=== PATIENT | female | born 1980 | race Caucasian/White ===

== ENCOUNTER 2019-11-04 06:05 | Inpatient (IN) | payer OTHER ==
[2019-11-04] MEDS ORDERED: Sodium Chloride 0.9% 10 ML ONE (06:34)
[2019-11-04] MEDS ORDERED: Thrombin 5000 UNITS/5 ML VIAL ONE (06:34)
[2019-11-04] MEDS ORDERED: Levofloxacin 500 mg/D5W 100 ml Premix Bag ONE (06:45)
[2019-11-04] MEDS ORDERED: Bacitracin Zinc Ointment 30 gm TUBE ONE (06:50)
[2019-11-04 06:59] LABS: #Eosinphils 0.1 thou/uL (0.0-0.7); #Lymphocytes 2.3 thou/uL (1.20-3.40); #Monocytes 0.6 thou/uL (0.11-0.59); #Neutrophils 4.8 thou/uL (1.40-6.50); %Basophils 0.6 % (0.0-1.0); %Eosinophils 1.3 % (0.0-10.0); %Lymphocytes 29.2 % (21.0-51.0); %Monocytes 7.5 % (0.0-10.0); %Neutrophils 61.5 % (42.0-75.0); Hemoglobin 15.4 g/dL (12.0-16.0); Mean Corpuscular HGB CONC 34.7 g/dL (32.0-36.0); Mean Corpuscular Hemoglobin 31.4 pg (27.0-31.0); Mean Corpuscular Volume 90.5 fL (78.0-98.0); Mean Platelet Volume 8.2 fL (7.4-10.4); Platelet Count 273 thou/uL (130-400); RBC Distribution Width 11.4 % (11.5-14.5); Red Blood Cell (RBC) Count 4.89 mill/uL (4.20-5.40); White Blood Cell (WBC) Count 7.7 thou/uL (4.8-10.8)
[2019-11-04 07:03] LABS: BHCG - Serum Negative (NEGATIVE); Pregs Control Background? CLEAR/WHITE (CLR/WHITE); Pregs Control Bar Appear? YES (CONTROL BAR)
[2019-11-04] MEDS ORDERED: Midazolam HCl 2 mg/2 ml Vial ONE ×2 (07:13→07:28)
[2019-11-04 07:14] LABS: PTT 28.1 SEC (22.9-36.1); Prothrombin Time 13.2 SEC (12.0-14.7)
[2019-11-04 07:17] LABS: Anion Gap 11 mmol/L (10-20); BUN (Urea Nitrogen) 8 mg/dL (7.0-18.7); Calc. Creatinine Clearance 134 mL/min (70-130); Calcium 9.2 mg/dL (7.8-10.44); Carbon Dioxide 26 mmol/L (22-29); Chloride 102 mmol/L (98-107); Estimated GFR-MDRD 71; Glucose 105 mg/dL (70-105); Potassium 3.4 mmol/L (3.5-5.1); Sodium 136 mmol/L (136-145)
[2019-11-04] MEDS ORDERED: Fentanyl 100 MCG/2 ML VIAL ONE ×5 (07:27→14:13)
[2019-11-04] MEDS ORDERED: Clindamycin/D5W 900 mg/50 ml Premix Bag ONE (08:06)
[2019-11-04] MEDS ORDERED: ePHEDrine/0.9% NaCl/PF SYRINGE 50 mg/10 ml ONE (10:44)
[2019-11-04] MEDS ORDERED: PROPOFOL 200 MG/20 ML VIAL ONE (10:44)
[2019-11-04] MEDS ORDERED: PHENYLEPHRINE-NS 100 MCG/ML 10 ML SYRINGE ONE (10:44)
[2019-11-04] MEDS ORDERED: Calcium Chloride 1 GM/10 ML Abboject SYRINGE ONE (10:44)
[2019-11-04] MEDS ORDERED: Dexamethasone 20 MG/5 ML VIAL ONE (10:44)
[2019-11-04] MEDS ORDERED: Ondansetron PF 4 MG/2 ML Vial ONE (10:44)
[2019-11-04] MEDS ORDERED: Rocuronium Bromide 10 MG/ML (10ML VIAL) ONE (10:44)
[2019-11-04] MEDS ORDERED: Glycopyrrolate 0.2 MG/ML 5 ML SYRINGE ONE (10:44)
[2019-11-04] MEDS ORDERED: Rocuronium Bromide 50 MG/5 ML VIAL ONE (10:54)
[2019-11-04] MEDS ORDERED: Acetaminophen 325 MG TAB PO PRN (12:04)
[2019-11-04] MEDS ORDERED: Cepastat Lozenges 1 LOZ PO PRN (12:04)
[2019-11-04] MEDS ORDERED: Labetalol HCl 100 MG/20 ML VIAL SLOW IVP PRN (12:04)
[2019-11-04] MEDS ORDERED: Mag-Al 1200 mg/1200 mg/30 ML UDCUP PO PRN (12:04)
[2019-11-04] MEDS ORDERED: Fleet Enema 133 ML BOT PR PRN (12:04)
[2019-11-04] MEDS ORDERED: hydrALAZINE 20 MG/ML VIAL SLOW IVP PRN (12:04)
[2019-11-04] MEDS ORDERED: Promethazine HCl 25 MG/ML VIAL ONE (13:37)
[2019-11-04] MEDS: HYDROcodone/Acetaminophen 7.5/325 mg Tablet PO PRN ×2 (15:41→20:12)
[2019-11-04] MEDS: Clindamycin/D5W 900 MG in Premix Bag 1 BAG IVPB SCH ×2 (15:43→20:06)
[2019-11-04] MEDS: Ondansetron PF 4 MG/2 ML Vial IVP PRN (15:43)
[2019-11-04] MEDS: Sodium Chloride 0.9% 1,000 ML IV SCH (15:51)
[2019-11-04 16:07] VITALS: BMI 42.0
[2019-11-04] MEDS: Morphine 2 MG/ML SYRINGE SLOW IVP PRN (18:06)
[2019-11-04] MEDS: Promethazine HCl 25 MG/ML VIAL IM/IV PRN (18:10)
[2019-11-05] MEDS: Ondansetron PF 4 MG/2 ML Vial IVP PRN ×3 (00:01→18:05)
[2019-11-05] MEDS: Morphine 2 MG/ML SYRINGE SLOW IVP PRN (00:01)
[2019-11-05] MEDS: Sodium Chloride 0.9% 1,000 ML IV SCH ×2 (03:14→15:26)
[2019-11-05] MEDS: Clindamycin/D5W 900 MG in Premix Bag 1 BAG IVPB SCH ×4 (03:14→20:00)
[2019-11-05 03:44] LABS: #Lymphocytes 1.2 thou/uL (1.20-3.40); #Neutrophils 16.7 thou/uL (1.40-6.50); %Eosinophils 0.1 % (0.0-10.0); %Lymphocytes 6.1 % (21.0-51.0); %Monocytes 5.1 % (0.0-10.0); %Neutrophils 88.7 % (42.0-75.0); Hemoglobin 13.7 g/dL (12.0-16.0); Mean Corpuscular HGB CONC 34.3 g/dL (32.0-36.0); Mean Corpuscular Hemoglobin 31.5 pg (27.0-31.0); Mean Corpuscular Volume 91.9 fL (78.0-98.0); Mean Platelet Volume 8.5 fL (7.4-10.4); Platelet Count 246 thou/uL (130-400); RBC Distribution Width 11.4 % (11.5-14.5); Red Blood Cell (RBC) Count 4.35 mill/uL (4.20-5.40); White Blood Cell (WBC) Count 18.8 thou/uL (4.8-10.8)
[2019-11-05 04:05] LABS: Anion Gap 13 mmol/L (10-20); BUN (Urea Nitrogen) 7 mg/dL (7.0-18.7); Calc. Creatinine Clearance 151 mL/min (70-130); Calcium 8.7 mg/dL (7.8-10.44); Carbon Dioxide 22 mmol/L (22-29); Chloride 102 mmol/L (98-107); Estimated GFR-MDRD 83; Glucose 131 mg/dL (70-105); Potassium 4.2 mmol/L (3.5-5.1); Sodium 133 mmol/L (136-145)
[2019-11-05] MEDS: Promethazine HCl 25 MG/ML VIAL IM/IV PRN ×2 (04:07→20:32)
[2019-11-05] MEDS: Pantoprazole 40 MG VIAL IVP SCH (07:46)
[2019-11-05] MEDS: HYDROcodone/Acetaminophen 7.5/325 mg Tablet PO PRN ×3 (08:04→23:11)
--- NOTE | 2019-11-05 08:16 | OP ---
DATE OF PROCEDURE: 11/04/2019 MINING MACHINERY ASSEMBLER: Jaylin Dowell PA-C. PREPROCEDURE DIAGNOSIS: Chiari I malformation, symptomatic. POSTPROCEDURE DIAGNOSIS: Chiari I malformation, symptomatic. PROCEDURES PERFORMED: 1. Chiari decompression with suboccipital craniectomy and C1 laminectomy. 2. Duraplasty with right autologous fat, tensor fascia wendy graft. 3. Use of operative microscope for microdissection. DESCRIPTION OF PROCEDURE: After informed consent was obtained from the patient, the patient was brought to the OR. Proper patient, pause, and identification were carried out. She was placed under excellent general endotracheal anesthesia and positioned prone on the OR table. Following the placement of Xiong Julian, her head was secured in pins and hair was clipped in the region of the suboccipital area. We then identified the midline, marked below the inion down to the C1-C2 segment. This area was sterilely cleansed, prepared, and draped. Proper patient, pause, and identification were carried out. Hair was clipped. Following proper patient, pause, and identification, we opened up and exposed the skull base and C1 and just the top of C2. We assured we were lateral to the tonsillar descent and to the level of the spinal canal that would allow for appropriate correction over the suboccipital craniectomy. We then performed the suboccipital craniectomy, being careful to preserve the atlanto-occipital joints and a C1 laminectomy. The dura was then opened in a Y-shaped fashion. We identified the tonsils and descent. We were below the tonsils and lateral to the tonsils as well. We then harvested right tensor fascia wendy and closed that wound over a drain and brought it up for duraplasty. We then sewed in the dural patch. Copious irrigation occurred throughout as did maximizing hemostasis. DuraSeal was placed over the dural repair. The wound was then closed in anatomic layers. The patient emerged from anesthesia. Job ID: [id number]
[2019-11-05] MEDS ORDERED: Diazepam 10 MG/2 ML SYRINGE IVP PRN (10:13)
[2019-11-05] MEDS: Meperidine HCl/PF 25 MG/ML VIAL SLOW IVP PRN (10:42)
[2019-11-05] MEDS: Meclizine HCl 12.5 MG TAB PO PRN ×2 (10:54→23:13)
--- NOTE | 2019-11-05 17:01 | PRG ---
DATE OF SERVICE: 11/05/2019 This is Inocencio Mathis PA-C dictating a report for Clayton Wood MD. Ms. Ambriz is postoperative day #1 having undergone occipital craniotomy and C1 laminectomy for Chiari malformation decompression. The patient has significant neck pain. She also has some nausea. She has pressure under the back of the head, but no other indication of headache. She vomited one time overnight and has really been unable to keep anything down. She remains neurologically intact. Cranial nerves 2 through 12 grossly intact, and she moves all the extremities. She has a very very slight nystagmus on exam. Otherwise, she is neurologically stable. I would like to keep her in the unit overnight for close neurologic observation, but she will likely meet criteria for transition to the surgical floor tomorrow. We will update some of her medications as the morphine is making her nauseous and add some muscle relaxants to see if this will help control her pain. At this point, I would like her to mainly stay in bed to help her rest and to improve her nausea. Her sodium is slightly low, so we will keep an eye on that. We will keep her BIANCA drain in the right thigh from harvesting the right fascia wendy graft. Please call with any changes in the patient's neurologic status. Job ID: [id number]
--- NOTE | 2019-11-05 17:10 | CON ---
DATE OF CONSULTATION: PROVIDER: Dr. Leena Koenig. CHIEF COMPLAINT: Management of medical comorbidities. HISTORY OF PRESENT ILLNESS: Ms. Ambriz is a pleasant 39-year-old lady who was seen at [facility] on November 05, 2019. She underwent surgery for Arnold Chiari malformation earlier today. Hospitalist Service has been consulted for management of medical comorbidities. She denies any chest pain or shortness of breath. She reports headache, mainly pain at the surgical site. She also reports nausea, but no vomiting. She denies any fevers. She denies any other complaints. REVIEW OF SYSTEMS: All systems reviewed and found to be negative except for the pertinent positives mentioned above. PAST MEDICAL HISTORY: Arnold Chiari malformation type 1 and hypertension. SURGICAL HISTORY: Chiari decompression with some occipital craniectomy and C1 laminectomy, duraplasty with right autologous fat, tensor fascia wendy graft today. FAMILY HISTORY: No family history of premature coronary artery disease. SOCIAL HISTORY: Negative x3. ALLERGIES: PENICILLIN. HOME MEDICATIONS: Tylenol p.r.n., Norvasc 5 mg daily and Claritin p.r.n. PHYSICAL EXAMINATION: GENERAL: On examination, Ms. Ambriz is awake and alert, not in acute distress. VITAL SIGNS: She is morbidly obese, with a BMI of 42.1. Blood pressure is 110/97, pulse 94, respiratory rate 23 and oxygen saturation 98% on room air. She is afebrile. EYES: No scleral icterus, no conjunctival pallor. ENT: Moist mucosal membranes. No oropharyngeal erythema or exudates. NECK: Supple, nontender, trachea midline. RESPIRATORY: Accessory muscles of breathing are not active. Chest wall movements are symmetric bilaterally. LUNGS: Clear to auscultation without wheeze, rhonchi, or crepitations. CARDIOVASCULAR: S1 and S2 are heard, regular. Peripheral pulses palpable. ABDOMEN: Soft, nontender, bowel sounds heard. NEUROLOGIC: Cranial nerves 2 through 12 are intact. MUSCULOSKELETAL: The patient able to move all extremities. SKIN: No rashes. LYMPHATIC: No cervical lymphadenopathy. PSYCHIATRIC: Normal mood, normal affect, patient is oriented to person, place, and time. LABORATORY DATA: Ms. Ambriz's labs and investigations were reviewed. She has leukocytosis with 18,800 white cells, of which 88.7% are neutrophils. Hemoglobin and platelet count are normal. Sodium is mildly decreased at 133. Creatinine and potassium are normal. Serum test is negative. ASSESSMENT AND PLAN: Ms. Ambriz is a pleasant 39-year-old lady who was seen at [facility] on November 05, 2019 for management of medical problems. Her problem list includes: 1. Hypertension: She is currently on a Cardene drip. We will continue her on Cardene drip in the Critical Care Unit. She also has p.r.n. hydralazine and labetalol ordered. Her home medication of amlodipine has been restarted. 2. Hyponatremia: Mild, likely asymptomatic. 3. Leukocytosis: The patient is afebrile. She is on clindamycin and levofloxacin. 4. Deep venous thrombosis prophylaxis and pain management per Neurosurgery Service. Many thanks for allowing me to participate in your patient's care. Please feel free to contact me with any questions or concerns. LEVEL OF RISK: Low. LEVEL OF COMPLEXITY: Low. Job ID: [id number]
[2019-11-06] MEDS: tiZANidine HCl 4 MG TAB PO PRN ×2 (01:40→08:42)
[2019-11-06] MEDS: Meperidine HCl/PF 25 MG/ML VIAL SLOW IVP PRN (01:40)
[2019-11-06] MEDS: Sodium Chloride 0.9% 1,000 ML IV SCH ×2 (02:55→15:41)
[2019-11-06] MEDS: Clindamycin/D5W 900 MG in Premix Bag 1 BAG IVPB SCH ×4 (02:55→20:29)
[2019-11-06] MEDS: HYDROcodone/Acetaminophen 7.5/325 mg Tablet PO PRN ×4 (06:07→22:51)
[2019-11-06] MEDS: Ondansetron PF 4 MG/2 ML Vial IVP PRN ×2 (08:09→21:13)
[2019-11-06] MEDS: Amlodipine 5 MG TAB PO SCH (08:09)
[2019-11-06] MEDS: Pantoprazole 40 MG VIAL IVP SCH (08:10)
[2019-11-06 12:33] LABS: #Lymphocytes 2.3 thou/uL (1.20-3.40); #Neutrophils 10.4 thou/uL (1.40-6.50); %Basophils 0.2 % (0.0-1.0); %Eosinophils 0.2 % (0.0-10.0); %Lymphocytes 16.9 % (21.0-51.0); %Monocytes 6.9 % (0.0-10.0); %Neutrophils 75.8 % (42.0-75.0); Hemoglobin 12.8 g/dL (12.0-16.0); Mean Corpuscular HGB CONC 34.2 g/dL (32.0-36.0); Mean Corpuscular Hemoglobin 31.1 pg (27.0-31.0); Mean Corpuscular Volume 90.9 fL (78.0-98.0); Platelet Count 220 thou/uL (130-400); RBC Distribution Width 11.3 % (11.5-14.5); Red Blood Cell (RBC) Count 4.13 mill/uL (4.20-5.40); White Blood Cell (WBC) Count 13.7 thou/uL (4.8-10.8)
[2019-11-06 12:45] LABS: Anion Gap 10 mmol/L (10-20); BUN (Urea Nitrogen) 9 mg/dL (7.0-18.7); Calc. Creatinine Clearance 159 mL/min (70-130); Calcium 8.3 mg/dL (7.8-10.44); Carbon Dioxide 27 mmol/L (22-29); Chloride 98 mmol/L (98-107); Estimated GFR-MDRD 88; Glucose 109 mg/dL (70-105); Potassium 3.8 mmol/L (3.5-5.1); Sodium 131 mmol/L (136-145)
--- NOTE | 2019-11-06 15:30 | PRG ---
DATE OF SERVICE: 11/06/2019 This is Inocencio Mathis PA-C dictating a report for Clayton Wood MD. This is a postoperative progress note. Ms. Ambriz is postoperative day #2 having undergone suboccipital craniectomy and C1 laminectomy for Chiari type 1 malformation decompression. She is doing well today. She has had significant improvement in her nausea and she has had no vomiting over the past 12 hours. She has been able to tolerate some Jell-O. She is even sitting up in bed. We switched her morphine to Demerol, which helped with the nausea as well as increased some muscle relaxants and pain medications and overall this combination seems to be working. She was even able to walk from her bed to a close chair with a walker. We will continue her Mayer and her BIANCA drain as the output has been about 10 mL since this morning at 7. We will continue her on antibiotics until the drain is removed. Overall, the patient is neurologically stable. We will transfer her to the surgical floor. I should note that her sodium is low at 131. We will continue her IV fluids, but restrict her free water and encourage more electrolyte rich beverages like Gatorade. Neurologically, the patient has no nystagmus on exam. Cranial nerves 2 through 12 grossly intact. She follows commands in all extremities equally. The patient seems to be recovering well postoperatively. We will continue to monitor, but she really is moving in the right direction. Please call with any changes in the patient's neurologic status. Job ID: [id number]
--- NOTE | 2019-11-06 16:03 | PDOC.HOSPP ---
- Subjective Encounter Date: 11/06/19 Encounter Time: 09:40 Subjective: Pt seen for followup re: hypertension. Feels better. - Objective Vital Signs & Weight: Vital Signs (12 hours) Temp Pulse Pulse Pulse BP BP BP 11/06/19 12:00 97.8 F 11/06/19 10:47 82 94 132/83 133/81 11/06/19 08:09 100 127/104 H 11/06/19 08:00 98.0 F Pulse Ox Pulse Ox Pulse Ox 11/06/19 12:00 11/06/19 10:47 93 L 93 L 11/06/19 08:09 11/06/19 08:00 91 L Weight Admit Weight 218 lb Weight 215 lb 6.266 oz Most Recent Monitor Data Heart Rate from ECG 57 NIBP 122/74 NIBP BP-Mean 90 Respiration from ECG 13 SpO2 91 I&O: 11/05/19 11/06/19 11/07/19 06:59 06:59 06:59 Intake Total 1005 2412 200 Output Total 950 2090 640 Balance 55 322 -440 Result Diagrams: 11/06/19 12:17 11/06/19 12:17 Additional Labs: Labs and MARs reviewed by la Hospitalist ROS - Review of Systems Cardiovascular: denies: chest pain, palpitations, orthopnea, paroxysmal noc. dyspnea, edema, light headedness Gastrointestinal: reports: nausea. denies: vomiting, abdominal pain, diarrhea, constipation, melena, hematochezia - Medication Medications: Active Medications Generic Name Dose Route Start Last Admin Trade Name Freq PRN Reason Stop Dose Admin Hydrocodone Bitart/Acetaminophen 1 tab 11/04/19 12:04 11/06/19 10:52 [place] 7.5/325 PO 1 tab Q4H PRN Administration Moderate Pain (4-6) Amlodipine Besylate 5 mg 11/06/19 09:00 11/06/19 08:09 Norvasc PO 5 mg DAILY KARL Administration Diazepam 5 mg 11/05/19 10:13 11/05/19 20:35 Valium IVP 5 mg Q8H PRN Administration Fever>101/(Mi/Mod/Sev) Pain Clindamycin Phosphate/Dextrose 50 mls @ 100 mls/hr 11/04/19 14:00 11/06/19 15 :30 900 mg/ Device IVPB 50 mls 0200,0800,1400,2000 KARL Administration Levofloxacin 750 mg/ Device 150 mls @ 100 mls/hr 11/05/19 06:00 11/06/19 06: 04 IVPB 150 mls 0600 KARL Administration Sodium Chloride 1,000 mls @ 80 mls/hr 11/06/19 14:29 11/06/19 15:41 Normal Saline 0.9% IV 1,000 mls .[id number] KARL Administration Meclizine HCl 12.5 mg 11/05/19 08:14 11/05/19 23:13 Antivert PO 12.5 mg TIDPRN PRN Administration Dizziness Meperidine HCl 25 mg 11/05/19 10:11 11/06/19 01:40 Demerol SLOW IVP 25 mg Q2H PRN Administration Severe Pain (7-10) Ondansetron HCl 4 mg 11/04/19 12:04 11/06/19 08:09 Zofran IVP 4 mg Q6H PRN Administration Nausea/Vomiting Pantoprazole Sodium 40 mg 11/05/19 09:00 11/06/19 08:10 Protonix IVP 40 mg DAILY KARL Administration Promethazine HCl 12.5 mg 11/04/19 12:04 11/05/19 20:32 Phenergan IM/IV 12.5 mg Q6H PRN Administration Nausea/Vomiting Tizanidine HCl 4 mg 11/05/19 10:12 11/06/19 08:42 Zanaflex PO 4 mg TIDPRN PRN Administration Muscle Spasm - Exam General - other findings: Morbid obesity Eye: anicteric sclera ENT: moist mucosa Neck: supple Heart: RRR Respiratory: CTAB Gastrointestinal: soft, non-tender Skin: no rashes Psychiatric: normal affect, normal behavior Hosp A/P (1) Hypertension Code(s): I10 - ESSENTIAL (PRIMARY) HYPERTENSION Status: Chronic (2) Arnold-Chiari malformation, type I Status: Chronic - Plan PT/OT, out of bed/ambulate HTN controlled. s/p surgery for Arnold Chiari malformation type I. DVT prophylaxis and pain management per neurosurgery service.
[2019-11-06] MEDS: Docusate 100 MG CAP PO PRN (16:16)
[2019-11-07] MEDS: tiZANidine HCl 4 MG TAB PO PRN ×3 (00:18→15:24)
[2019-11-07] MEDS: Clindamycin/D5W 900 MG in Premix Bag 1 BAG IVPB SCH ×3 (02:08→15:19)
[2019-11-07] MEDS: Sodium Chloride 0.9% 1,000 ML IV SCH ×3 (05:35→20:15)
[2019-11-07] MEDS: HYDROcodone/Acetaminophen 7.5/325 mg Tablet PO PRN ×3 (05:43→23:16)
[2019-11-07 06:15] LABS: Anion Gap 11 mmol/L (10-20); BUN (Urea Nitrogen) 8 mg/dL (7.0-18.7); Calc. Creatinine Clearance 166 mL/min (70-130); Calcium 8.2 mg/dL (7.8-10.44); Carbon Dioxide 25 mmol/L (22-29); Chloride 105 mmol/L (98-107); Estimated GFR-MDRD Greater than 90; Glucose 89 mg/dL (70-105); Potassium 3.6 mmol/L (3.5-5.1); Sodium 137 mmol/L (136-145)
[2019-11-07] MEDS ORDERED: Labetalol HCl 100 MG/20 ML VIAL SLOW IVP PRN (09:20)
[2019-11-07] MEDS ORDERED: cloNIDine 0.1 MG TAB PO PRN (09:20)
[2019-11-07] MEDS: Pantoprazole 40 MG VIAL IVP SCH (09:22)
[2019-11-07] MEDS: Amlodipine 5 MG TAB PO SCH (09:22)
[2019-11-07] MEDS: Polyethylene Glycol 3350 17 GM Packet PO SCH (09:22)
[2019-11-07 10:40] LABS: Magnesium 2.1 mg/dL (1.6-2.6); Phosphorus 2.3 mg/dL (2.3-4.7)
--- NOTE | 2019-11-07 13:46 | PRG ---
DATE OF SERVICE: 11/07/2019 SUBJECTIVE: Ms. Ambriz is postoperative day #3 from Chiari decompression with right fascia wendy duraplasty. She appears as is typical with postop Chiari patients, preferring the lights off while she is neurologically intact and has started to get out of bed. She still endorses pain in the incision. We will remove her BIANCA drain from her right thigh and observe her wounds both in the suboccipital region and on the right thigh. She did have hyponatremia on postoperative day 1. This is corrected to 137 with free water restriction and encouraging Gatorade. Hopefully, she can be dismissed tomorrow. We will remove her Mayer catheter as well. Job ID: [id number]
--- NOTE | 2019-11-07 13:56 | PDOC.HOSPP ---
- Subjective Encounter Date: 11/07/19 Encounter Time: 13:00 Subjective: Patient seen and examined for med mngt. Mild right sided intermittent abd pain - on and off - started in last 1 hr. No N/V. No BM. No other complaints. No overnight events - Objective Vital Signs & Weight: Vital Signs (12 hours) Temp Pulse Resp BP Pulse Ox 11/07/19 13:20 98.2 F 82 20 157/98 H 92 L 11/07/19 09:22 88 11/07/19 08:59 96 11/07/19 07:57 98.2 F 88 18 146/85 H 96 11/07/19 04:08 98.2 F 87 16 126/79 95 Weight Admit Weight 218 lb Weight 215 lb 6.266 oz Most Recent Monitor Data Heart Rate from ECG 69 NIBP 144/67 NIBP BP-Mean 92 Respiration from ECG 14 SpO2 91 I&O: 11/06/19 11/07/19 11/08/19 06:59 06:59 06:59 Intake Total 2412 2774 Output Total 2090 2925 Balance 322 -151 Result Diagrams: 11/06/19 12:17 11/07/19 05:03 Additional Labs: Laboratory Tests 11/04/19 11/06/19 06:49 12:17 Sodium 131 L Potassium 3.4 L Hospitalist ROS - Review of Systems Respiratory: denies: cough, dry, shortness of breath, hemoptysis, SOB with excertion, pleuritic pain, sputum, wheezing, other Cardiovascular: denies: chest pain, palpitations, orthopnea, paroxysmal noc. dyspnea, edema, light headedness, other Gastrointestinal: reports: abdominal pain. denies: nausea, vomiting, diarrhea, constipation, melena, hematochezia, other - Medication Medications: Active Medications Generic Name Dose Route Start Last Admin Trade Name Freq PRN Reason Stop Dose Admin Hydrocodone Bitart/Acetaminophen 1 tab 11/04/19 12:04 11/07/19 05:43 [place] 7.5/325 PO 1 tab Q4H PRN Administration Moderate Pain (4-6) Amlodipine Besylate 5 mg 11/06/19 09:00 11/07/19 09:22 Norvasc PO 5 mg DAILY KARL Administration Diazepam 5 mg 11/05/19 10:13 11/05/19 20:35 Valium IVP 5 mg Q8H PRN Administration Fever>101/(Mi/Mod/Sev) Pain Docusate Sodium 100 mg 11/04/19 12:04 11/06/19 16:16 Colace PO 100 mg BIDPRN PRN Administration Constipation Clindamycin Phosphate/Dextrose 50 mls @ 100 mls/hr 11/04/19 14:00 11/07/19 09 :21 900 mg/ Device IVPB 50 mls 0200,0800,1400,2000 KARL Administration Levofloxacin 750 mg/ Device 150 mls @ 100 mls/hr 11/05/19 06:00 11/07/19 05: 35 IVPB 150 mls 0600 KARL Administration Sodium Chloride 1,000 mls @ 80 mls/hr 11/06/19 14:29 11/07/19 05:35 Normal Saline 0.9% IV 1,000 mls .[id number] KARL Administration Meclizine HCl 12.5 mg 11/05/19 08:14 11/05/19 23:13 Antivert PO 12.5 mg TIDPRN PRN Administration Dizziness Meperidine HCl 25 mg 11/05/19 10:11 11/06/19 01:40 Demerol SLOW IVP 25 mg Q2H PRN Administration Severe Pain (7-10) Ondansetron HCl 4 mg 11/04/19 12:04 11/06/19 21:13 Zofran IVP 4 mg Q6H PRN Administration Nausea/Vomiting Polyethylene Glycol 17 gm 11/07/19 09:00 11/07/19 09:22 Miralax PO 17 gm DAILY KARL Administration Promethazine HCl 12.5 mg 11/04/19 12:04 11/05/19 20:32 Phenergan IM/IV 12.5 mg Q6H PRN Administration Nausea/Vomiting Tizanidine HCl 4 mg 11/05/19 10:12 11/07/19 09:22 Zanaflex PO 4 mg TIDPRN PRN Administration Muscle Spasm - Exam General Appearance: NAD Neck: supple, no JVD Heart: RRR, no gallops Respiratory: no wheezes, no rales, no ronchi Gastrointestinal: soft, non-tender, normal bowel sounds Extremities: no edema Hosp A/P - Plan DVT proph w/SCDs HTN Morbid obesity BMI 42.1 Hyponatremia Hypokalemia Seasonal allergies PLAN: Cont Amlodipine Add PRN Clonidine/Labetalol Electrolytes corrected etio of Abd pain ?? - will monitor Add Probiotics Cont supportive care Will follow PRN
[2019-11-07] MEDS: Docusate 100 MG CAP PO PRN (15:24)
[2019-11-07] MEDS ORDERED: traMADol HCl 50 MG TAB PO PRN (17:05)
[2019-11-07] MEDS: Saccharomyces boulardii 250 MG CAP PO SCH (20:15)
[2019-11-08] MEDS ORDERED: traMADol HCl 50 MG TAB PO PRN (00:57)
[2019-11-08] MEDS: tiZANidine HCl 4 MG TAB PO PRN ×2 (01:01→21:00)
[2019-11-08] MEDS: HYDROcodone/Acetaminophen 7.5/325 mg Tablet PO PRN ×4 (07:38→23:51)
[2019-11-08] MEDS: Amlodipine 5 MG TAB PO SCH (07:38)
[2019-11-08] MEDS: Polyethylene Glycol 3350 17 GM Packet PO SCH (07:39)
[2019-11-08] MEDS: Loratadine 10 MG TAB PO PRN (07:52)
--- NOTE | 2019-11-08 09:20 | PRG ---
DATE OF SERVICE: 11/08/2019 Ms. Ambriz is 4 days post Chiari decompression. She complains that her neck hurts and she has headache. She complains that when she coughs, her head hurts more. The thigh incision has bothersome as well. She has gotten out of bed yesterday and made it towards the hallway, but has not moved significant amount since her operation. She prefers to keep her head perfectly still. I do not see any fevers recorded among her electronic vital signs. Her blood pressures have been in the one teens to 150s. Neurological examination is normal. A right thigh incision has Steri-Strips on it and some reaction to adhesive, but is well-approximated. There is some ecchymosis. The cervical incision still has an occlusive dressing on it, which can be removed. The plan today is to have Ms. Ambriz use incentive spirometer to keep her lungs as clear as possible and improve her cough. Oxygenation will help her. I want her to move around more and move her head from [id number] to break to muscle spasm. Ms. Ambriz can shower. She can walk with assistance to the shower, sit in a shower chair, have her dressings removed completely and then shower her entire body. If soap and shampoo get on the incisions, they can be patted dry with a towel. Hopefully with time, Ms. Ambriz gets her pain under reasonable control and she becomes safer for her activities of daily living and can be discharged. I do not anticipate a discharge today. Job ID: [id number]
[2019-11-08] MEDS: Sodium Chloride 0.9% 1,000 ML IV SCH ×2 (19:35→22:53)
[2019-11-08] MEDS: Docusate 100 MG CAP PO PRN (21:00)
[2019-11-08] MEDS: Saccharomyces boulardii 250 MG CAP PO SCH (21:00)
[2019-11-09] MEDS: Meperidine HCl/PF 25 MG/ML VIAL SLOW IVP PRN ×2 (01:47→05:09)
[2019-11-09] MEDS: Loratadine 10 MG TAB PO PRN (05:09)
[2019-11-09] MEDS: Amlodipine 5 MG TAB PO SCH (09:06)
[2019-11-09] MEDS: HYDROcodone/Acetaminophen 7.5/325 mg Tablet PO PRN ×2 (09:07→14:34)
[2019-11-09] MEDS: Polyethylene Glycol 3350 17 GM Packet PO SCH (09:07)
[2019-11-09 11:06] VITALS: BP 121/83; TEMP 97.9
--- NOTE | 2019-11-09 11:37 | PRG ---
DATE OF SERVICE: 11/09/2019 Ms. Ambriz is now 5 days out from [facility] decompression. She is able to ambulate in the halls yesterday. This shows improvement. She made it all the way around the fourth floor at least once if not twice. She is feeling a bit better but not perfect. Overnight, I do not see any fevers recorded among the electronic vital signs. Blood pressures have been in the 120s. The neurological examination has been stable. I removed the bandages today. There is Steri-Strips on the incision. It is well approximated. Ms. Ambriz can shower. She can be discharged. Prescriptions are on the chart. Followup arrangements have been made with Dr. Wood. Job ID: [id number]
== END 2019-11-09 14:45 | disposition home or self-care (01) | DRG 26 ==
LOC: SURG A 06:05 → CCU 15:05 → SURG A 11-07 00:05
PROVIDERS: ADMIT Surgery; ATTEND Surgery
PROC: 00U207Z Supplement Dura Mater with Autologous Tissue Substitute, Open Approach (ICD-10-PCS; principal; 2019-11-04)
PROC: 00NC0ZZ Release Cerebellum, Open Approach (ICD-10-PCS; 2019-11-04)
DX: G93.5 Compression of brain (principal); E87.1 Hypo-osmolality and hyponatremia; Z68.41 Body mass index [BMI] 40.0-44.9, adult; D72.829 Elevated white blood cell count, unspecified; E66.01 Morbid (severe) obesity due to excess calories; I10 Essential (primary) hypertension; E87.6 Hypokalemia; Z88.0 Allergy status to penicillin; G43.909 Migraine, unspecified, not intractable, without status migrainosus; R11.2 Nausea with vomiting, unspecified
CPT/HCPCS: 36415; 80048; 83735; 84100; 84703; 85025; 85610; 85730; 86850; 86900; 86901; 93005; 93010; C9113; J1100; J1642; J1956; J2175; J2250; J2270; J2405; J2550; J2704; J3010; J3360; J3370; J3490; J8597